=== PATIENT | male | born 1955 | race Caucasian/White ===

== ENCOUNTER → 2020-02-17 11:20 | Outpatient (BNVA) | payer BC, MEDICARE, SELFPAY | PROVIDERS: PCP Internal Medicine; Visit Provider Internal Medicine Pulmonary Disease | DX: Z76.89 Persons encountering health services in other specified circumstances (principal) ==

== ENCOUNTER 2020-03-31 15:42 | Outpatient (REF) | payer BC, MEDICARE, SELFPAY ==
--- NOTE | 2020-03-31 15:44 | CT_ITS ---
EXAMINATION: CT CHEST WITHOUT CONTRAST CLINICAL INFORMATION: Abnormal finding of the lungs COMPARISON: No recent prior comparison TECHNIQUE: Multidetector volumetric CT imaging of the chest was done. Axial MIP volume rendering provided. Sagittal and coronal reformatted images were obtained. This CT examination was performed using dose optimization techniques as appropriate, variously including the following: *Automated exposure control *Adjustment of mA and/or kV according to patient size (this includes techniques or standardized protocols for targeted exams where dose is matched to indication/reason for exam; i.e. 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 Well-expanded lungs. LUNGS: The central airways are patent. There is minimal groundglass opacity in the medial aspect of the right lower lobe along known osteophytes of the spine. This is a typical finding. There is no dense consolidation. Scattered thin-walled lung cysts are seen. No pneumothorax. Pulmonary nodules are noted. 1. Left lower lobe 0.5 cm nodule on series 7 image 395. 2. Left upper lobe 0.3 cm nodule on series 7 image 183. MEDIASTINUM: Normal heart size. Coronary artery calcifications are present. No pericardial effusion. No mediastinal lymphadenopathy. The thyroid gland is normal in size. Calcification in the left lobe noted. PLEURA: There is no pleural effusion. No pleural mass or thickening. AXILLA: No lymphadenopathy. UPPER ABDOMEN: There is a 1.6 cm cyst in the left lobe of the liver. No acute findings seen in the visualized upper abdomen. OSSEOUS STRUCTURES: No acute or suspicious osseous abnormality. Degenerative changes noted in the spine. Fusion hardware seen at C6-C7 and C7-T1. CT/CT chest wo con IMPRESSION: No acute finding in the lungs. Pulmonary nodules noted measuring up to 0.5 cm. No follow-up needed in a low risk patient. Consider 12 month follow-up chest CT in a high-risk patient.
== END 2020-03-31 15:43 | disposition home or self-care (01) ==
LOC: HO.CT 15:42
PROVIDERS: Visit Provider Internal Medicine Pulmonary Disease
DX: R91.8 Other nonspecific abnormal finding of lung field (principal)
CPT/HCPCS: 71250

== ENCOUNTER → 2020-06-02 11:04 | Outpatient (BNVA) | payer BC, MEDICARE, SELFPAY | PROVIDERS: PCP Internal Medicine; Visit Provider Internal Medicine Pulmonary Disease ==

== ENCOUNTER 2020-06-19 11:33 | Outpatient (REF) | payer BC, MEDICARE, SELFPAY ==
[2020-06-19 13:34] LABS: MANUAL DIFF FLAG NO
[2020-06-19 13:53] LABS: Basophils Absolute Auto 0.1 X10*3/uL (0.0-0.2); Basophils Percent Auto 0.8 % (0-2); Eosinophils Absolute Auto 0.3 X10*3/uL (0.0-0.4); Eosinophils Percent Auto 3.5 % (0-4); Hematocrit 42.8 % (42-52); Hemoglobin 13.9 g/dl (14.0-18.0); Imm Gran Abs Auto 0.29 X10*3/uL (0.00-0.03); Imm Gran Pct Auto 2.9 % (0.0-0.4); Lymphocytes Percent Auto 20.7 % (20-40); Mean Corpuscular HGB Conc 32.5 g/dl (31.0-36.0); Mean Corpuscular Hemoglobin 30.4 pg (27.0-33.0); Mean Corpuscular Volume 93.7 fL (80-98); Mean Platelet Volume 9.3 fL (9.4-12.4); Monocytes Percent Auto 9.8 % (2-11); Neutrophils Absolute Auto 6.1 X10*3/uL (2.0-8.3); Neutrophils Percent Auto 62.3 % (45-73); Platelet Count 275 X10*3/uL (160-400); Red Blood Count 4.57 X10*6/uL (4.60-5.80); Red Cell Distribution Width 12.9 % (11.0-16.0); White Blood Count 9.8 X10*3/uL (4.8-10.8)
== END 2020-06-19 11:34 | disposition home or self-care (01) ==
LOC: HO.LAB 11:33
PROVIDERS: PCP Internal Medicine; Visit Provider Internal Medicine Pulmonary Disease
DX: J44.9 Chronic obstructive pulmonary disease, unspecified (principal); R06.00 Dyspnea, unspecified; R91.8 Other nonspecific abnormal finding of lung field; Z87.891 Personal history of nicotine dependence; Z91.09 Other allergy status, other than to drugs and biological substances
CPT/HCPCS: 36415; 82785; 85025; 86003

== ENCOUNTER → 2020-08-04 14:22 | Outpatient (BNVA) | payer BC, MEDICARE, SELFPAY | PROVIDERS: PCP Internal Medicine; Visit Provider Internal Medicine Pulmonary Disease ==

== ENCOUNTER → 2020-08-21 13:28 | Outpatient (BNVA) | payer BC, MEDICARE, SELFPAY | PROVIDERS: PCP Internal Medicine; Visit Provider Internal Medicine Pulmonary Disease ==

== ENCOUNTER → 2020-09-16 15:03 | Outpatient (BNVA) | payer BC, MEDICARE, SELFPAY | PROVIDERS: PCP Internal Medicine; Visit Provider Internal Medicine Pulmonary Disease ==

== ENCOUNTER → 2020-12-09 14:52 | Outpatient (BNVA) | payer BC, MEDICARE, SELFPAY | PROVIDERS: PCP Internal Medicine; Visit Provider Internal Medicine Pulmonary Disease ==

== ENCOUNTER → 2021-08-19 20:19 | Outpatient (REF) | payer BC, MEDICARE, SELFPAY | LOC: HO.SL 20:19 | PROVIDERS: PCP Internal Medicine; Visit Provider Internal Medicine Pulmonary Disease | DX: G47.33 Obstructive sleep apnea (adult) (pediatric) (principal) | CPT/HCPCS: 95810 ==

== ENCOUNTER → 2021-09-02 11:38 | Outpatient (BNVA) | payer BC, MEDICARE, SELFPAY | PROVIDERS: PCP Internal Medicine; Visit Provider Internal Medicine Pulmonary Disease | DX: Z13.89 Encounter for screening for other disorder (principal) ==

== ENCOUNTER 2021-11-05 13:07 | Outpatient (REF) | payer BC, MEDICARE, SELFPAY ==
--- NOTE | ~2021-11-05 | CT_ITS ---
EXAMINATION: CT CHEST WITHOUT CONTRAST CLINICAL INFORMATION: Other nonspecific abnormal finding of lung field. COMPARISON: 03/31/2020 TECHNIQUE: Multidetector volumetric CT imaging of the chest was done. Axial MIP volume rendering provided. Sagittal and coronal reformatted images were obtained. This CT examination was performed using dose optimization techniques as appropriate, variously including the following: *Automated exposure control *Adjustment of mA and/or kV according to patient size (this includes techniques or standardized protocols for targeted exams where dose is matched to indication/reason for exam; i.e. extremities or head) *Use of iterative reconstruction technique DLP: 205 mGy-cm FINDINGS: ACTIVITIES MANAGER: Symmetrically expanded lungs. LUNGS: There are a few scattered calcified granulomata. These were present previously and unchanged. Similarly there are a few scattered nonspecific pulmonary micronodules, the largest a 4 mm left lower lobe nodule in image [id number] that was present previously as well. 2-3 mm left upper lobe nodule in image 157/629 is similarly unchanged. MEDIASTINUM: Thyroid is homogeneous. No hilar or mediastinal lymphadenopathy. Mild coronary artery calcification. Trace pericardial fluid. PLEURA: There is no pleural effusion. No pleural mass or thickening. AXILLA: No lymphadenopathy. UPPER ABDOMEN: 1.8 cm cyst in the left lobe of liver. No adrenal mass. OSSEOUS STRUCTURES: Partially imaged lower cervical fusion hardware. CT/CT chest wo con IMPRESSION: Unchanged small pulmonary nodules at most 4 mm in diameter. These are stable since 03/31/2020. No new or increasing pulmonary nodules. Per Fleischner guidelines, no further imaging follow-up recommended.
== END 2021-11-05 13:08 | disposition home or self-care (01) ==
LOC: HO.CT 13:07
PROVIDERS: Visit Provider Internal Medicine Pulmonary Disease
DX: R91.8 Other nonspecific abnormal finding of lung field (principal)
CPT/HCPCS: 71250

== ENCOUNTER 2021-12-08 13:03 | Outpatient (REF) | payer BC, MEDICARE, SELFPAY ==
--- NOTE | 2021-12-08 13:58 | PFT_ITS ---
FLOWS: FEV1 55% of predicted at 1.91 L. FVC 54% of predicted at 2.53 L. FEV1 to FVC ratio of 0.75. No bronchodilator response. LUNG VOLUMES: Total lung capacity 65% of predicted at 4.56 L. Residual volume 80% of predicted at 1.89 L. Slow vital capacity 57% of predicted at 2.67 L. Expiratory reserve volume 24% of predicted at 0.33 L. Diffusion capacity is mildly decreased, diffusion capacity corrects to normal after adjustment for alveolar ventilation. IMPRESSION: Moderate restrictive ventilatory defect with no bronchodilator response. Decreased expiratory reserve volume suggests extrathoracic restriction likely secondary to abdominal obesity. Franko Snell MD AP/MODL / [id number]
== END 2021-12-08 13:04 | disposition home or self-care (01) ==
LOC: HO.RESP 13:03
PROVIDERS: PCP Internal Medicine; Visit Provider Internal Medicine Pulmonary Disease
DX: J44.9 Chronic obstructive pulmonary disease, unspecified (principal)
CPT/HCPCS: 94060; 94727; 94729

== ENCOUNTER 2023-03-16 13:43 | Outpatient (AMB) | payer BC, MEDICARE, SELFPAY ==
--- NOTE | 2023-03-16 13:46 | MHC.OFFVIS ---
Intake Vital Signs 03/16/23 13:47 Height 5 ft 10 in Weight 218 lb 4.122 oz BMI 31.3 BP 114/64 Blood Pressure Location Lt brachial Position Sitting Pulse 104 H Pulse Source Pulse Oximeter Pulse Oximetry (%) 98 Oxygen Delivery Method Room Air Intake Visit Reasons: pulm nodule Concession Cashier Required: No Grooving Machine Operator: Grooving Machine Operator offered & declined Accompanied by: Self / Same As Patient Allergies No Known Allergies Allergy (Verified 03/16/23 13:50) Medication List - Last Reconciled 03/16/23 by Althea Quintana LPN albuterol sulfate 90 mcg/actuation (ProAir HFA) 1 puff inhalation QID carbamazepine ER 300 mg PO TID cetirizine 10 mg PO BID esomeprazole magnesium (Nexium) 20 mg PO DAILY eszopiclone (Lunesta) 2 mg PO BEDTIME irbesartan 300 mg PO DAILY methocarbamol 1,500 mg PO DAILY PRN methylphenidate HCl ER (Concerta) 54 mg PO DAILY promethazine mg PO rosuvastatin 20 mg PO DAILY tamsulosin (Flomax) 0.4 mg PO DAILY umeclidinium-vilanterol 62.5-25 mcg/actuation (Anoro Ellipta) 1 inh inhalation Q24H 90 days HPI pulm nodule HPI Details 68-year-old gentleman, former 30+ pack-year smoker, quit 2010 with underlying history of moderate COPD followed for underlying dyspnea, pulmonary nodules, LESLY, environmental allergies, and COPD.? He continues to use Anoro and albuterol MDI with suboptimal control of his underlying COPD symptoms.? He has been using Dupixent for eczema and environmental allergies with excellent control of his symptoms, however recently he had to discontinued secondary to financial reasons. Patient continues to use BiPAP to control his LESLY. Patient has intentional lost approximately [address] [facility] Social History (Updated 03/16/23 @ 13:53 by Althea Quintana LPN) Household Members: Spouse and Children Patient Tobacco Use Status: Former Tobacco user Years Smoked: 25 yrs Second Hand Smoke Exposure: No Review of Systems Const Denies daytime sleepiness, Denies excessive sweating, Denies fatigue, Denies fever(s), Denies lethargy, Denies malaise, Denies night sweats, Denies snoring and Denies weight loss Eyes Denies blurry vision and Denies itchy eyes ENT Denies nasal congestion, Denies post nasal drip, Denies sinus pain, Denies sinus pressure and Denies other ( Thrush) Card Denies chest pain, Denies pedal edema, Denies dyspnea, Reports dyspnea on exertion, Denies orthopnea and Denies paroxysmal nocturnal dyspnea Resp Denies cough, Denies hemoptysis, Denies excessive phlegm production, Denies dyspnea, Reports dyspnea on exertion, Denies snoring and Denies wheezing GI Denies abdominal pain and Denies heartburn Musc Denies myalgias, Denies arthralgias and Denies joint swelling Skin/Breast Denies rash Neuro Denies memory loss and Denies seizure-like activity Psych Denies abnormal sleep pattern, Denies anxiety and Denies memory loss Endo Denies excessive sweating, Denies fatigue and Denies heat intolerance Lico/Lymph Denies easy bruising Aller/Immun Denies itchy eyes, Denies seasonal rhinorrhea and Denies wheezing Physical Exam Vital Signs: Last Vital Signs Pulse 104 H 03/16/23 13:47 BP 114/64 03/16/23 13:47 Pulse Ox 98 03/16/23 13:47 Oxygen Delivery Method Room Air 03/16/23 13:47 BMI result Body Mass Index 31.3 Const General: no acute distress and alert Nutritional Appearance: not obese Orientation/consciousness: Other orientation findings ( oriented) HEENT Head: Yes atraumatic Eyes General: appearance normal, both eyes and all related structures Sclerae: sclerae normal EOM: EOMs intact bilaterally Neck Neck: Yes supple Lymphatic: no lymphadenopathy noted Resp Effort & Inspection: normal respiratory effort and no use of accessory muscles Auscultation: clear to auscultation bilaterally Cardio Rate: regular rate Rhythm: regular rhythm Heart sounds: no gallops, no murmurs and no rubs Skin General skin exam: other ( warm) Extrem General: No clubbing, No cyanosis and No edema Assessment & Plan Assessment & Plan (1) COPD (chronic obstructive pulmonary disease): Code(s): J44.9 - Chronic obstructive pulmonary disease, unspecified Plan: Suboptimal control on Anoro. Add theophylline and duo nebs. Continue albuterol MDI. (2) LESLY on CPAP: Code(s): G47.33 - Obstructive sleep apnea (adult) (pediatric); Z99.89 - Dependence on other enabling machines and devices Plan: Control on current on BiPAP therapy. (3) Environmental allergies: Code(s): Z91.09 - Other allergy status, other than to drugs and biological substances Plan: Patient cannot afford Dupixent. He continues to use Zyrtec. (4) Personal history of nicotine dependence: Code(s): Z87.891 - Personal history of nicotine dependence Plan: Will obtain CT lung screening. Orders: Orders CT lung screening 07/15/23 Z87.891 - Personal history of nicotine dependence Medications: New ipratropium-albuterol 0.5 mg-3 mg(2.5 mg base)/3 mL 3 mL inhalation Q4-6H PRN 180 mL 6RF wheezing 30 days theophylline ER 400 mg PO DAILY 30 tabs 6RF 30 days Coding Level of Care Code Est Pt Level 4 (11970) Diagnoses COPD (chronic obstructive pulmonary disease) J44.9 LESLY on CPAP G47.33; Z99.89 Environmental allergies Z91.09 Personal history of nicotine dependence Z87.891
[2023-03-16 13:47] VITALS: BP 114/64; PULSE 104; O2SAT 98; BMI 31.3
== END 2023-03-16 14:09 | disposition home or self-care (01) ==
PROVIDERS: PCP Internal Medicine; Visit Provider Internal Medicine Pulmonary Disease
DX: J44.9 Chronic obstructive pulmonary disease, unspecified (principal); G47.33 Obstructive sleep apnea (adult) (pediatric); Z99.89 Dependence on other enabling machines and devices; Z91.09 Other allergy status, other than to drugs and biological substances; Z87.891 Personal history of nicotine dependence
CPT/HCPCS: 99214

== ENCOUNTER → 2023-03-16 13:43 | Outpatient (BNVA) | payer BC, MEDICARE, SELFPAY | PROVIDERS: PCP Internal Medicine; Visit Provider Internal Medicine Pulmonary Disease ==

== ENCOUNTER 2023-07-25 13:54 | Outpatient (AMB) | payer BC, MEDICARE, SELFPAY ==
--- NOTE | 2023-07-25 13:59 | MHC.OFFVIS ---
Intake Vital Signs 07/25/23 14:01 Height 5 ft 10 in Weight 201 lb 11.567 oz BMI 28.9 BP 127/78 Blood Pressure Location Lt brachial Position Sitting Pulse 106 H Pulse Source Doppler Pulse Oximetry (%) 97 Oxygen Delivery Method Room Air Intake Visit Reasons: pulm nodule Allergies No Known Allergies Allergy (Verified 07/25/23 14:03) HPI pulm nodule HPI Details 68-year-old gentleman, former 30+ pack-year smoker, quit 2010 with underlying history of moderate COPD followed for underlying dyspnea, pulmonary nodules, LESLY, environmental allergies, and COPD.? He continues to use Anoro and albuterol MDI with suboptimal control of his underlying COPD symptoms.? He has been using Dupixent for eczema and environmental allergies with excellent control of his symptoms, however he had to discontinued secondary to financial reasons. Patient continues to use BiPAP to control his LESLY. Patient has intentional lost approximately 40 lb. He does complain of cough productive of greenish sputum. He is also getting an ENT evaluation secondary to feeling like there is food regurgitation. [facility] Social History Household Members: Spouse and Children Patient Tobacco Use Status: Former Tobacco user Years Smoked: 25 yrs Second Hand Smoke Exposure: No Review of Systems Const Denies daytime sleepiness, Denies excessive sweating, Denies fatigue, Denies fever(s), Denies lethargy, Denies malaise, Denies night sweats, Denies snoring and Denies weight loss Eyes Denies blurry vision and Denies itchy eyes ENT Denies nasal congestion, Denies post nasal drip, Denies sinus pain, Denies sinus pressure and Denies other ( Thrush) Card Denies chest pain, Denies pedal edema, Denies dyspnea, Denies orthopnea and Denies paroxysmal nocturnal dyspnea Resp Reports cough, Denies hemoptysis, Reports excessive phlegm production, Denies dyspnea, Denies snoring and Denies wheezing GI Denies abdominal pain and Denies heartburn Musc Denies myalgias, Denies arthralgias and Denies joint swelling Skin/Breast Denies rash Neuro Denies memory loss and Denies seizure-like activity Psych Denies abnormal sleep pattern, Denies anxiety and Denies memory loss Endo Denies excessive sweating, Denies fatigue and Denies heat intolerance Lico/Lymph Denies easy bruising Aller/Immun Denies itchy eyes, Denies seasonal rhinorrhea and Denies wheezing Physical Exam Vital Signs: Last Vital Signs Pulse 106 H 07/25/23 14:01 BP 127/78 07/25/23 14:01 Pulse Ox 97 07/25/23 14:01 Oxygen Delivery Method Room Air 07/25/23 14:01 BMI result Body Mass Index 28.9 Const General: no acute distress and alert Nutritional Appearance: not obese Orientation/consciousness: Other orientation findings ( oriented) HEENT Head: Yes atraumatic Eyes General: appearance normal, both eyes and all related structures Sclerae: sclerae normal EOM: EOMs intact bilaterally Neck Neck: Yes supple Lymphatic: no lymphadenopathy noted Resp Effort & Inspection: normal respiratory effort and no use of accessory muscles Auscultation: clear to auscultation bilaterally Cardio Rate: regular rate Rhythm: regular rhythm Heart sounds: no gallops, no murmurs and no rubs Skin General skin exam: other ( warm) Extrem General: No clubbing, No cyanosis and No edema Assessment & Plan Assessment & Plan (1) COPD exacerbation: Code(s): J44.1 - Chronic obstructive pulmonary disease with (acute) exacerbation Plan: Worsening control on Anoro, duo nebs, and albuterol MDI. Restart theophylline. Will treat bronchitic cough with a course of Levaquin. (2) LESLY on CPAP: Code(s): G47.33 - Obstructive sleep apnea (adult) (pediatric); Z99.89 - Dependence on other enabling machines and devices Plan: Well controlled on CPAP therapy. Continue current CPAP therapy. (3) Environmental allergies: Code(s): Z91.09 - Other allergy status, other than to drugs and biological substances Plan: Insurance no longer covering Dupixent. Continue Zyrtec. Medications: New levofloxacin 750 mg PO DAILY 7 tabs 0RF Coding Level of Care Code Est Pt Level 4 (02159) Diagnoses COPD exacerbation J44.1 LESLY on CPAP G47.33; Z99.89 Environmental allergies Z91.09
[2023-07-25 14:01] VITALS: BP 127/78; PULSE 106; O2SAT 97; BMI 28.9
== END 2023-07-25 14:15 | disposition home or self-care (01) ==
PROVIDERS: PCP Internal Medicine; Visit Provider Internal Medicine Pulmonary Disease
DX: J44.1 Chronic obstructive pulmonary disease with (acute) exacerbation (principal); G47.33 Obstructive sleep apnea (adult) (pediatric); Z99.89 Dependence on other enabling machines and devices; Z91.09 Other allergy status, other than to drugs and biological substances
CPT/HCPCS: 99214

== ENCOUNTER → 2023-07-25 13:54 | Outpatient (BNVA) | payer BC, MEDICARE, SELFPAY | PROVIDERS: PCP Internal Medicine; Visit Provider Internal Medicine Pulmonary Disease ==

== ENCOUNTER 2023-09-07 16:07 | Outpatient (REF) | payer BC, MEDICARE, SELFPAY ==
--- NOTE | ~2023-09-07 | CT_ITS ---
EXAMINATION: CT CHEST SCREENING CLINICAL INFORMATION: Personal history of nicotine dependence. The patient has a 30 pack-year history of smoking, having quit 14 years ago. COMPARISON: CT chest 11/05/2021. TECHNIQUE: Multidetector volumetric CT imaging of the chest is performed on a Siemens SOMATOM Definition scanner without contrast using low dose technique. Additional 2D coronal and sagittal reformatted images and axial 3D maximum intensity projection (MIP) images are generated on the CT workstation. This CT examination was performed using dose optimization techniques as appropriate, variously including the following: *Automated exposure control *Adjustment of mA and/or kV according to patient size (this includes techniques or standardized protocols for targeted exams where dose is matched to indication/reason for exam; i.e. extremities or head) *Use of iterative reconstruction technique DLP: 65 mGy-cm FINDINGS: LUNGS: Mild emphysematous changes are present along with mild bronchial thickening. Scattered pulmonary nodules are seen the largest measuring only 3 mm in the left upper lobe (5:150 compare prior 5:156). Sheriff images of all nodules have been saved. No new, increasing sized or worrisome pulmonary nodules are seen. MEDIASTINUM: The mediastinum is normal. CORONARY ARTERY CALCIFICATION: Minimal. PLEURA: There is no pleural effusion. No pleural mass or thickening. AXILLA: No lymphadenopathy. UPPER ABDOMEN: Left hemidiaphragm is mildly elevated. A left upper pole benign Bosniak class I water density cyst is present which needs no additional imaging or followup. OSSEOUS STRUCTURES: ACDF hardware noted in the lower cervical spine. Left shoulder prosthesis is present. No bony destructive lesion. CT/CT lung screening IMPRESSION: Benign-appearing change pulmonary nodules not concerning for malignancy. ASSESSMENT: Lung-RADS category 2: Benign. RECOMMENDATION: Routine annual low-dose CT screening in 12 months.
== END 2023-09-07 16:08 | disposition home or self-care (01) ==
LOC: HO.CT 16:07
PROVIDERS: PCP Internal Medicine; Visit Provider Internal Medicine Pulmonary Disease
DX: Z12.2 Encounter for screening for malignant neoplasm of respiratory organs (principal); Z87.891 Personal history of nicotine dependence
CPT/HCPCS: 71271

== ENCOUNTER 2023-12-05 13:24 | Outpatient (AMB) | payer BC, MEDICARE, SELFPAY ==
[2023-12-05 13:26] VITALS: BP 132/82; PULSE 85; O2SAT 98; BMI 29.0
--- NOTE | 2023-12-05 13:26 | A.OFFVIS_ITS ---
Vital Signs 12/05/23 13:26 Height 5 ft 10 in Weight 202 lb BMI 29.0 BP 132/82 Blood Pressure Location Lt brachial Position Sitting Pulse 85 Pulse Source Doppler Pulse Oximetry (%) 98 Oxygen Delivery Method Room Air Intake Visit Reasons: Pulm Nodule Allergies No Known Allergies Allergy (Verified 07/25/23 14:03) HPI HPI Pulm Nodule: Details: 68-year-old gentleman, former 30+ pack-year smoker, quit 2010 with underlying history of moderate COPD followed for underlying dyspnea, pulmonary nodules, LESLY, environmental allergies, and COPD.? He continues to use Anoro and albuterol MDI with suboptimal control of his underlying COPD symptoms.? He has been using Dupixent for eczema and environmental allergies with excellent control of his symptoms and his insurance is covering it again. Patient continues to use BiPAP to control his LESLY. Patient has intentional lost approximately 40 lb. He d enies any recent exacerbations. [facility] Social History Household Members: Spouse and Children Patient Tobacco Use Status: Former Tobacco user Years Smoked: 25 yrs Second Hand Smoke Exposure: No Review of Systems Const Denies daytime sleepiness, Denies excessive sweating, Denies fatigue, Denies fever(s), Denies lethargy, Denies malaise, Denies night sweats, Denies snoring and Denies weight loss Eyes Denies blurry vision and Denies itchy eyes ENT Denies nasal congestion, Denies post nasal drip, Denies sinus pain, Denies sinus pressure and Denies other ( Thrush) Card Denies chest pain, Denies pedal edema, Denies dyspnea, Denies orthopnea and Denies paroxysmal nocturnal dyspnea Resp Denies cough, Denies hemoptysis, Denies excessive phlegm production, Denies dyspnea, Denies snoring and Denies wheezing GI Denies abdominal pain and Denies heartburn Musc Denies myalgias, Denies arthralgias and Denies joint swelling Skin/Breast Denies rash Neuro Denies memory loss and Denies seizure-like activity Psych Denies abnormal sleep pattern, Denies anxiety and Denies memory loss Endo Denies excessive sweating, Denies fatigue and Denies heat intolerance Lico/Lymph Denies easy bruising Aller/Immun Denies itchy eyes, Denies seasonal rhinorrhea and Denies wheezing Physical Exam Vital Signs: Last Vital Signs Pulse 85 12/05/23 13:26 BP 132/82 12/05/23 13:26 Pulse Ox 98 12/05/23 13:26 Oxygen Delivery Method Room Air 12/05/23 13:26 BMI result Body Mass Index 29.0 Const General: no acute distress and alert Nutritional Appearance: not obese Orientation/consciousness: Other orientation findings ( oriented) HEENT Head: Yes atraumatic Eyes General: appearance normal, both eyes and all related structures Sclerae: sclerae normal EOM: EOMs intact bilaterally Neck Neck: Yes supple Lymphatic: no lymphadenopathy noted Resp Effort & Inspection: normal respiratory effort and no use of accessory muscles Auscultation: clear to auscultation bilaterally Cardio Rate: regular rate Rhythm: regular rhythm Heart sounds: no gallops, no murmurs and no rubs Skin General skin exam: other ( warm) Extrem General: No clubbing, No cyanosis and No edema Assessment & Plan Assessment & Plan (1) COPD (chronic obstructive pulmonary disease): Code(s): J44.9 - Chronic obstructive pulmonary disease, unspecified Category: Medical Plan: Well controlled on duo nebs, Anoro, theophylline, and albuterol MDI. Continue current regimen. (2) LESLY on CPAP: Code(s): G47.33 - Obstructive sleep apnea (adult) (pediatric); Z99.89 - Dependence on other enabling machines and devices Category: Medical Plan: Well controlled on BiPAP therapy. Continue BiPAP therapy. (3) Environmental allergies: Code(s): Z91.09 - Other allergy status, other than to drugs and biological substances Category: Medical Plan: Well controlled on Dupixent. Continue Dupixent. Coding Level of Care Code Est Pt Level 4 (97441) Diagnoses COPD (chronic obstructive pulmonary disease) J44.9 LESLY on CPAP G47.33; Z99.89 Environmental allergies Z91.09
== END 2023-12-05 13:46 | disposition home or self-care (01) ==
PROVIDERS: PCP Internal Medicine; Visit Provider Internal Medicine Pulmonary Disease
DX: J44.9 Chronic obstructive pulmonary disease, unspecified (principal); G47.33 Obstructive sleep apnea (adult) (pediatric); Z99.89 Dependence on other enabling machines and devices; Z91.09 Other allergy status, other than to drugs and biological substances
CPT/HCPCS: 99214

== ENCOUNTER → 2023-12-05 13:24 | Outpatient (BNVA) | payer BC, MEDICARE, SELFPAY | PROVIDERS: PCP Internal Medicine; Visit Provider Internal Medicine Pulmonary Disease ==

== ENCOUNTER 2024-04-02 12:56 | Outpatient (AMB) | payer BC, MEDICARE, SELFPAY ==
[2024-04-02 13:00] VITALS: BP 138/84; PULSE 101; O2SAT 100; BMI 29.6
--- NOTE | 2024-04-02 13:00 | MHC.OFFVIS ---
Vital Signs 04/02/24 13:00 Height 5 ft 10 in Weight 206 lb 2.115 oz BMI 29.6 BP 138/84 Blood Pressure Location Rt brachial Position Sitting Pulse 101 H Pulse Source Doppler Pulse Oximetry (%) 100 Oxygen Delivery Method Room Air Intake Visit Reasons: SOB, congested Allergies No Known Allergies Allergy (Verified 07/25/23 14:03) HPI HPI SOB, congested: Details: 69-year-old gentleman, former 30+ pack-year smoker, quit 2010 with underlying history of moderate COPD followed for underlying dyspnea, pulmonary nodules, LESLY, environmental allergies, and COPD.? He continues to use Anoro and albuterol MDI with suboptimal control of his underlying COPD symptoms.? He has been using Dupixent for eczema and environmental allergies with excellent control of his symptoms and his insurance continues to covered. Patient continues to use BiPAP to control his LESLY. Today he complains of an acute exacerbation symptomatic with cough and worsening dyspnea. REPLACED BY [facility] Social History Household Members: Spouse and Children Patient Tobacco Use Status: Former Tobacco user Years Smoked: 25 yrs Second Hand Smoke Exposure: No Review of Systems Const Denies daytime sleepiness, Denies excessive sweating, Denies fatigue, Denies fever(s), Denies lethargy, Denies malaise, Denies night sweats, Denies snoring and Denies weight loss Eyes Denies blurry vision and Denies itchy eyes ENT Denies nasal congestion, Denies post nasal drip, Denies sinus pain, Denies sinus pressure and Denies other ( Thrush) Card Denies chest pain, Denies pedal edema, Denies dyspnea, Denies orthopnea and Denies paroxysmal nocturnal dyspnea Resp Reports cough, Denies hemoptysis, Reports excessive phlegm production, Denies dyspnea, Denies snoring and Denies wheezing GI Denies abdominal pain and Denies heartburn Musc Denies myalgias, Denies arthralgias and Denies joint swelling Skin/Breast Denies rash Neuro Denies memory loss and Denies seizure-like activity Psych Denies abnormal sleep pattern, Denies anxiety and Denies memory loss Endo Denies excessive sweating, Denies fatigue and Denies heat intolerance Lico/Lymph Denies easy bruising Aller/Immun Denies itchy eyes, Denies seasonal rhinorrhea and Denies wheezing Physical Exam Vital Signs: Last Vital Signs Pulse 101 H 04/02/24 13:00 BP 138/84 04/02/24 13:00 Pulse Ox 100 04/02/24 13:00 Oxygen Delivery Method Room Air 04/02/24 13:00 BMI result Body Mass Index 29.6 Const General: no acute distress and alert Nutritional Appearance: not obese Orientation/consciousness: Other orientation findings ( oriented) HEENT Head: Yes atraumatic Eyes General: appearance normal, both eyes and all related structures Sclerae: sclerae normal EOM: EOMs intact bilaterally Neck Neck: Yes supple Lymphatic: no lymphadenopathy noted Resp Effort & Inspection: normal respiratory effort and no use of accessory muscles Auscultation: clear to auscultation bilaterally Cardio Rate: regular rate Rhythm: regular rhythm Heart sounds: no gallops, no murmurs and no rubs Skin General skin exam: other ( warm) Extrem General: No clubbing, No cyanosis and No edema Assessment & Plan Assessment & Plan (1) COPD (chronic obstructive pulmonary disease): Code(s): J44.9 - Chronic obstructive pulmonary disease, unspecified Category: Medical Plan: Baseline controlled on Anoro, duo nebs, and albuterol MDI. Patient has been encouraged to be more compliant with Anoro. Continue current regimen. Now with an acute exacerbation, will treat with a course of Levaquin and prednisone. (2) Environmental allergies: Code(s): Z91.09 - Other allergy status, other than to drugs and biological substances Category: Medical Plan: Improved control on Dupixent. Continue current regimen. (3) Personal history of nicotine dependence: Code(s): Z87.891 - Personal history of nicotine dependence Category: Medical Plan: Continue with yearly screening, next in August of 2024, ordered. Medications: New prednisone 40 mg (2 x 20 mg) PO DAILY 10 tabs 0RF Refilled levofloxacin 750 mg PO DAILY 14 tabs 0RF Coding Level of Care Code Est Pt Level 4 (40263) Complex EM visit Add On G2211 Diagnoses COPD (chronic obstructive pulmonary disease) J44.9 Environmental allergies Z91.09 Personal history of nicotine dependence Z87.891
== END 2024-04-02 13:32 | disposition home or self-care (01) ==
PROVIDERS: PCP Internal Medicine; Visit Provider Internal Medicine Pulmonary Disease
DX: J44.9 Chronic obstructive pulmonary disease, unspecified (principal); Z91.09 Other allergy status, other than to drugs and biological substances; Z87.891 Personal history of nicotine dependence
CPT/HCPCS: 99214

== ENCOUNTER → 2024-04-02 12:56 | Outpatient (BNVA) | payer BC, MEDICARE, SELFPAY | PROVIDERS: PCP Internal Medicine; Visit Provider Internal Medicine Pulmonary Disease ==

== ENCOUNTER 2024-07-03 14:44 | Outpatient (AMB) | payer BC, MEDICARE, SELFPAY ==
[2024-07-03 14:47] VITALS: BP 137/78; PULSE 143; O2SAT 100; BMI 29.0
--- NOTE | 2024-07-03 14:47 | A.OFFVIS_ITS ---
Vital Signs 07/03/24 14:47 Height 5 ft 10 in Weight 202 lb BMI 29.0 BP 137/78 Blood Pressure Location Lt brachial Position Sitting Pulse 143 H Pulse Source Doppler Pulse Oximetry (%) 100 Oxygen Delivery Method Room Air Intake Visit Reasons: pulm nodule Allergies No Known Allergies Allergy (Verified 07/03/24 14:54) HPI HPI pulm nodule: Details: 69-year-old gentleman, former 30+ pack-year smoker, quit 2010 with underlying history of moderate COPD followed for underlying dyspnea, pulmonary nodules, LESLY, environmental allergies, and COPD.? He continues to use Anoro and albuterol MDI with reasonable control of his underlying COPD symptoms.? He has been using Dupixent for eczema and environmental allergies with excellent control of his symptoms. Patient continues to use BiPAP to control his LESLY. He denies any recent exacerbations. [facility] Medical History (Updated 07/02/24 @ 12:11 by Tabby Gonzalez PA-C) LESLY on CPAP Environmental allergies COPD (chronic obstructive pulmonary disease) Pulmonary nodules Personal history of nicotine dependence Surgical History (Updated 07/02/24 @ 12:12 by Tabby Gonzalez PA-C) History of nasal surgery Social History Household Members: Spouse and Children Patient Tobacco Use Status: Former Tobacco user Years Smoked: 25 yrs Second Hand Smoke Exposure: No Review of Systems Const Denies daytime sleepiness, Denies excessive sweating, Denies fatigue, Denies fever(s), Denies lethargy, Denies malaise, Denies night sweats, Denies snoring and Denies weight loss Eyes Denies blurry vision and Denies itchy eyes ENT Denies nasal congestion, Denies post nasal drip, Denies sinus pain, Denies sinus pressure and Denies other ( Thrush) Card Denies chest pain, Denies pedal edema, Denies dyspnea, Denies orthopnea and Denies paroxysmal nocturnal dyspnea Resp Denies cough, Denies hemoptysis, Denies excessive phlegm production, Denies dyspnea, Denies snoring and Denies wheezing GI Denies abdominal pain and Denies heartburn Musc Denies myalgias, Denies arthralgias and Denies joint swelling Skin/Breast Denies rash Neuro Denies memory loss and Denies seizure-like activity Psych Denies abnormal sleep pattern, Denies anxiety and Denies memory loss Endo Denies excessive sweating, Denies fatigue and Denies heat intolerance Lico/Lymph Denies easy bruising Aller/Immun Denies itchy eyes, Denies seasonal rhinorrhea and Denies wheezing Physical Exam Vital Signs: Last Vital Signs Pulse 143 H 07/03/24 14:47 BP 137/78 07/03/24 14:47 Pulse Ox 100 07/03/24 14:47 Oxygen Delivery Method Room Air 07/03/24 14:47 BMI result Body Mass Index 29.0 Const General: no acute distress and alert Nutritional Appearance: not obese Orientation/consciousness: Other orientation findings ( oriented) HEENT Head: Yes atraumatic Eyes General: appearance normal, both eyes and all related structures Sclerae: sclerae normal EOM: EOMs intact bilaterally Neck Neck: Yes supple Lymphatic: no lymphadenopathy noted Resp Effort & Inspection: normal respiratory effort and no use of accessory muscles Auscultation: clear to auscultation bilaterally Cardio Rate: regular rate Rhythm: regular rhythm Heart sounds: no gallops, no murmurs and no rubs Skin General skin exam: other ( warm) Extrem General: No clubbing, No cyanosis and No edema Assessment & Plan Assessment & Plan (1) COPD (chronic obstructive pulmonary disease): Code(s): J44.9 - Chronic obstructive pulmonary disease, unspecified Category: Medical Plan: Well controlled on Anoro, duo nebs, and albuterol MDI. Continue current regimen. (2) Personal history of nicotine dependence: Comment: (30+PYH - quit 2010) Code(s): Z87.891 - Personal history of nicotine dependence Category: Medical Plan: Lung cancer screening CT chest is pending. (3) LESLY on CPAP: Code(s): G47.33 - Obstructive sleep apnea (adult) (pediatric); Z99.89 - Dependence on other enabling machines and devices Category: Medical Plan: Well controlled on current NIPPV therapy. Continue current therapy. (4) Environmental allergies: Code(s): Z91.09 - Other allergy status, other than to drugs and biological substances Category: Medical Plan: Well controlled on Dupixent. Continue current regimen. Orders: Orders PFT pulmonary function test Today J44.9 - Chronic obstructive pulmonary disease, unspecified Coding Level of Care Code Est Pt Level 4 (15727) Diagnoses COPD (chronic obstructive pulmonary disease) J44.9 Personal history of nicotine dependence Z87.891 LESLY on CPAP G47.33; Z99.89 Environmental allergies Z91.09
--- OUTSIDE RECORDS SUMMARY | 2024-07-03 14:47 | XMS_ITS | Data Portability ---
Author Organization [place] - [facility], [facility] [place] Address [address] [place] [address] Care Team Providers Care Dobby Loom Weaver Name Role Phone HENDERSON TERRANCE Primary Care Provider [phone] Assessment No assessment recorded. Plan of Treatment Reminders Order Date Submit Date Provider Last Modified By Organization Details Last Modified Time Details Appointments None recorded. Lab None recorded. Referral physical therapist referral - SURGERY: S/p Left anatomic TSA 4; Right GHOA; general upper body deconditi oning2-3x /week x 6 weeksEval uate and TreatGoal : - Decrease pain/swel ling - Increase range of motion - Increase strength and/or endurance Recommend ed Modalitie s: - Heat prior to stretchin g- Ice at the end of the session- Additiona l modalitie s prn, but emphasis should be on manual therapyPr ecautions : WBAT, no motion restricti onsTherap eutic Exercise: - Passive, active-as sist, active range of motion as tolerated , focusing on gradual progressi on over time- Scapula r shrugs/re tractions - should be major focus!- Submaxima l isometric rotator cuff strengthe tanya- Build to theraband and weight resistanc e (max 3lbs) as able- General upper body strength and condition ingEmphas ize importanc e of home program, 2x/day 2023 024 [email or web address] Not available 4 13:30:26 Procedures None recorded. Surgeries None recorded. Imaging XR, shoulder, 2 or more view - L shoulder a TSR 2 view rm 214 2023 024 [email or web address] [facility], [address], [address], [place], [address], 4 13:30:26 XR, shoulder, 2 or more view - L shoulder aTSR 3 gary view rm 216 2023 024 [email or web address] [facility], [address], [address], [place], [address], 4 10:49:35 Medication Orders None recorded. Patient TargetsNo targets recorded. Patient InstructionsNo instructions recorded. Reason for Referral Physical Therapist Referral for History of operative procedure on shoulder SURGERY: S/p Left anatomic TSA 05/19/2023; Right GHOA; general upper body deconditioning2-3x/week x 6 weeksEvaluate and TreatGoal: - Decrease pain/swelling - Increase range of motion - Increase strength and/or enduranceRecommended Modalities: - Heat prior to stretching- Ice at the end of the session- Additional modalities prn, but emphasis should be on manual therapyPrecautions: WBAT, no motion restrictionsTherapeutic Exercise: - Passive, active-assist, active range of motion as tolerated, focusing on gradual progression over time- Scapular shrugs/retractions - should be major focus!- Submaximal isometric rotator cuff strengthening- Build to theraband and weight resistance (max 3lbs) as able- General upper body strength and conditioningEmphasize importance of home program, 2x/day Referring Physician: Jenifer Bear, Orthopedic Surgery, [id number] Encounter Date: 02/08/2024 Results Created Date Observation Date Name Description Value Unit Range Abnormal Flag Note LastModifiedBy Organization Detail LastModifiedTime 01/12/20 24 01/25/2023 imagi ng/di agnos tic resul t No observ ation record ed. [email or web address] Not Available 12/15 02:58:58 01/12/20 24 01/25/2023 imagi ng/di agnos tic resul t No observ ation record ed. [email or web address] Not Available 12/15 02:58:59 01/12/20 24 05/19/2023 imagi ng/di agnos tic resul t No observ ation record ed. [email or web address] Not Available 12/15 02:59:09 02/08/2002/08/2024 XR, shoul julieta, 2 or more view http:/ [email or web address] ?Encry pted=s hAaTro YD8dLq bEUv6g %2BXZw aYqtaq 0bqfl% 2Fg9IQ a4ajBk vP9nXo QUaueC m3YtLR FvZlgJ JJ8mAn HZtai3 8r9235 AC0Kqa niDUKG jKiQtr MwF INTERFACE [facility] [address], [place], [address], 02/08/2024 14:25:50 02/08/20 24 02/08/2024 XR, shoul julieta, 2 or more view [email or web address] ?Encry pted=s hAaTro YD8dLq bEUv6g %2BXZw aYqtaq 0bqfl% 2Fg9IQ a4ajBk vP9nXo QUaueC m3YtLR FvZlg JJ8Denton HZtai3 5r9931 AC0Kqa niDUKG jKiQtr MwF INTERFACE [facility] [address], [place], [address], 02/08/2024 14:25:52 Result Notes None recorded. Problems Name Problem SNOMED Code Status Onset Date Resolution Date Notes Provider Name and Address Organization Details Recorded Time No complaints [id number] Active Status : 'I'; Not Available [facility] 09:14:14 Problem Notes None recorded. Procedures Surgical History Date Name Laterality Status Provider Name and Address Organization Details Recorded Time 5 Sports Shoulder 4&1 w/US completed Richard Donovan PA-C [address], [place], [address], [place] [facility] 06/18/2024 09:16:39 4 Sports Shoulder completed Jenifer Bear MD [address], [place], [address], [place] [facility] 02/08/2024 14:45:05 4 total shoulder replacement completed HU SZYMANSKI [facility] 08/10/2023 16:06:58 Imaging Results Imaging Date Name Status LastModified by Organiz ation Details LastModified Time 01/25/2023 imaging/diag nostic result completed Information not available 01/12/2024 02:58:58 01/25/2023 imaging/diag nostic result completed Information not available 01/12/2024 02:58:59 05/19/2023 imaging/diag nostic result completed Information not available 01/12/2024 02:59:09 02/08/2024 XR, shoulder, 2 or more view completed INTERFACE [employer] [facility] [address], [place], [address], 02/08/2024 14:25:50 02/08/2024 XR, shoulder, 2 or more view completed INTERFACE [employer] [facility] [facility] [address], [place], [address], 02/08/2024 14:25:52 Procedure Notes None recorded. Medical Equipment None Reported. Allergies Allergen ID Allergen Name Allergen Category Reaction Reaction Severity Criticality Documentation Date Start Date Code Code System Note Provider Name and Address Organization Details Recorded Time 08252 erythromy lory medicatio n Not available Not available Not available 07/17/20232011 4053 RxNorm Not Available [facility] 14:15:30 Medications Name Sig Start Date Stop Date Status Note LastModified by Organization Details LastModified Time celecoxib 200 mg capsule TAKE 1 CAPSULE BY MOUTH EVERY DAY active Not Available Not Available No t Available atorvastati n 40 mg tablet TAKE 1 TABLET BY MOUTH EVERY DAY FOR 90 DAYS active Not Available Not Available No t Available methocarbam ol 500 mg tablet TAKE 1 TABLET BY MOUTH THREE TIMES A DAY active Not Available Not Available No t Available buspirone 5 mg tablet TAKE 1 TABLET BY MOUTH DAILY NEEDED X90 DAYS active Not Available Not Available No t Available prednisone 10 mg tablet PLEASE SEE ATTACHED FOR DETAILED DIRECTION S active Not Available Not Available No t Available ipratropium 0.5 mg-albutero l 3 mg (2.5 mg base)/3 mL nebulizatio n soln 09/13 completed Not Available Not Available Not Available azithromyci n 250 mg tablet THERAPY PACK ORALLY 2 TABS DAY 1, THEN 1 TAB DAILY X 4 DAYS 5 DAYS 09/13 completed Not Available Not Available Not Available theophyllin e ER 400 mg tablet,exte nded release 24 hr TAKE 1 TABLET BY MOUTH EVERY DAY active Not Available Not Available No t Available valacyclovi r 1 gram tablet TAKE 2 TABLETS AT FIRST SIGN OF COLD SORE, THEN 2 TABLETS 12 HOURS LATER. active Not Available Not Available No t Available sumatriptan 100 mg tablet TAKE 1 TABLET BY MOUTH EVERY DAY NEEDED active Not Available Not Available No t Available prochlorper azine maleate 5 mg tablet TAKE 1 TABLET BY MOUTH ONCE DAILY NEEDED X30 DAYS active Not Available Not Available No t Available promethazin e 12.5 mg tablet TAKE 1/2 TABLET AT BEDTIME NEEDED. MAY CAUSE SIGNIFICA NT SEDATION. active Not Available Not Available No t Available carbamazepi ne ER 100 mg tablet,exte nded release,12 hr TAKE 3 TABLETS BY MOUTH TWICE A DAY active Not Available Not Available No t Available prednisone 20 mg tablet TAKE 2 TABLETS BY MOUTH DAILY active Not Available Not Available No t Available methylpheni date ER 54 mg tablet,exte nded release 24 hr TAKE 1 TABLET BY MOUTH EVERY DAY IN THE MORNING FOR 30 DAYS active Not Available Not Available No t Available prochlorper azine maleate 10 mg tablet TAKE 1 TABLET BY MOUTH EVERY DAY NEEDED FOR 30 DAYS active Not Available Not Available No t Available sulfamethox azole 800 mg-trimetho prim 160 mg tablet TAKE 1 TABLET BY MOUTH TWICE A DAY FOR 7 DAYS active Not Available Not Available No t Available sildenafil 100 mg tablet TAKE 1 TABLET DAILY NEEDED active Not Available Not Available No t Available Augmentin 125 mg-31.25 mg/5 mL oral suspension Take 20 mL every 8 hours by oral route. active Not Available Not Available No t Available terbinafine HCl 250 mg tablet TAKE 1 TABLET BY MOUTH EVERY DAY active Not Available Not Available No t Available propranolol 40 mg tablet TAKE 1 TABLET BY MOUTH EVERY DAY FOR 90 DAYS active Not Available Not Available No t Available amoxicillin 875 mg tablet TAKE 1 TABLET BY MOUTH TWICE A DAY FOR 14 DAYS 09/13 completed Not Available Not Available Not Available promethazin e 12.5 mg rectal suppository Insert by rectal route. active Not Available Not Available No t Available tamsulosin 0.4 mg capsule TAKE 1 CAPSULE BY MOUTH EVERY DAY FOR 90 DAYS active Not Available Not Available No t Available amlodipine 10 mg tablet Take 1 tablet every day by oral route. active Not Available Not Available No t Available benzonatate 100 mg capsule TAKE 1 CAPSULE BY MOUTH THREE TIMES A DAY NEEDED FOR 7 DAYS 09/13 completed Not Available Not Available Not Available cephalexin 500 mg capsule TAKE 1 CAPSULE BY MOUTH FOUR TIMES A DAY FOR 7 DAYS active Not Available Not Available No t Available pseudoephed rine-guaife nesin ER 80-700 mg tablet,exte nded release 1-2 PO EVERY 4-6 HOURS PRN PAIN 08/09 completed Statu s: 'Curr ent'; Not Available Not Available Not Available lidocaine 5 % topical patch APPLY 1 PATCH EXTERNALL Y DAILY REMOVE AFTER 12 HOURS active Not Available Not Available No t Available hydrocortis one 2.5 % topical cream APPLY TWICE A DAY NEEDED TO RASH BETWEEN EYES & AROUND NOSE MAY THIN SKIN USE ONLY FOR FLARE-UPS active Not Available Not Available No t Available mupirocin 2 % topical ointment APPLY TO OPEN SKIN ONCE DAILY active Not Available Not Available No t Available levofloxaci n 750 mg tablet TAKE 1 TABLET BY MOUTH DAILY active Not Available Not Available No t Available testosteron e 1 % (25 mg/2.5 gram) transdermal gel packet Apply 2 packets every day by transderm al route. 02/07 completed Not Available Not Available Not Available ipratropium bromide 42 mcg (0.06 %) nasal spray SPRAY 2 SPRAYS INTO EACH NOSTRIL 3 TIMES A DAY FOR 7 DAYS 09/13 completed Not Available Not Available Not Available celecoxib 100 mg capsule TAKE 1 CAPSULE BY MOUTH TWICE A DAY NEEDED X 90 DAYS 02/07 completed Not Available Not Available Not Available irbesartan 300 mg tablet TAKE 1 TABLET BY MOUTH EVERY DAY FOR 90 DAYS active Not Available Not Available No t Available diazepam 5 mg tablet DIRECTED TAKE 1 TABLET 60 MINUTES PRIOR TO MRI APPOINTME NT. 09/13 completed Not Available Not Available Not Available amoxicillin 875 mg-potassiu m clavulanate 125 mg tablet TAKE 1 TABLET EVERY 12 HOURS FOR 10 DAYS active Not Available Not Available No t Available testosteron e 1 % (50 mg/5 gram) transdermal gel packet APPLY 1 PACKET TO SKIN DAILY active Not Available Not Available No t Available tobramycin 0.3 %-dexametha sone 0.1 % eye drops,suspe nsion INSTILL 1 DROP IN EACH AFFECTED EYE ONCE OR TWICE PER DAY NEEDED. LIMIT USE TO 5 TIMES PER MONTH active Not Available Not Available No t Available oxycodone 5 mg tablet TAKE 1 TABLET UP TO THREE TIMES A DAY NEEDED FOR SEVERE PAIN active Not Available Not Available No t Available duloxetine 30 mg capsule,del ayed release TAKE 1 CAPSULE BY MOUTH EVERY DAY FOR 30 DAYS active Not Available Not Available No t Available duloxetine 60 mg capsule,del ayed release TAKE 1 CAPSULE ONCE DAILY active Not Available Not Available No t Available selenium sulfide 2.25 % shampoo USE SHAMPOO DAILY NEEDED. LEAVE ON FOR 5 MINUTES AND RINSE. active Not Available Not Available No t Available eszopiclone 2 mg tablet TAKE 1 TABLET BY MOUTH EVERY DAY AT BEDTIME NEEDED FOR 15 DAYS ORALLY ONCE A DAY 15 DAYS active Not Available Not Available No t Available Concerta Concerta 27MG Tablet Extended Release 2021 active Statu s: 'Curr ent'; Not Available Not Available Not Available testosteron e 50 mg/5 gram (1 %) transdermal gel APPLY 1 PACKETS TO SKIN DAILY 09/13 completed Not Available Not Available Not Available oxycodone HCl-oxycodo ne-ASA 1 tab po four times a day prn pain 08/09 completed Statu s: 'Curr ent'; Not Available Not Available Not Available Connor Kaminski [facility] spacer DIRECTED 09/13 completed Not Available Not Available Not Available Anoro Ellipta 62.5 mcg-25 mcg/actuati on powder for inhalation INHALE 1 PUFF EVERY 24 HOURS FOR 90 DAYS active Not Available Not Available No t Available Anoro Ellipta 09/13 completed Not Available Not Available Not Available Dupixent 300 mg/2 mL subcutaneou s syringe active Not Available Not Available No t Available Proair Digihaler active Not Available Not Available No t Available Wegovy 2.4 mg/0.75 mL subcutaneou s pen injector INJECT 0.75 SUBCUTANE OUSLY EVERY WEEK FOR 30 DAYS active Not Available Not Available No t Available Wegovy 1.7 mg/0.75 mL subcutaneou s pen injector INJECT ONCE A WEEK active Not Available Not Available No t Available Wegovy 0.25 mg/0.5 mL subcutaneou s pen injector 09/13 completed Not Available Not Available Not Available Vitals Date Recorded Body height Body mass index (BMI) Body weight Provider Name and Address Organization Details Last Updated DateTime 09/14/2023 175.26 cm 32.9 kg/m2 917599.1 g HU SZYMANSKI [facility] 09/14/2023 13:46:09 Date Recorded Body height Body mass index (BMI) Body weight Provider Name and Address Organization Details Last Updated DateTime 02/08/2024 175.26 cm 32.9 kg/m2 508863.1 g HU SZYMANSKI [facility] 02/08/2024 14:18:43 Date Recorded Body height Body mass index (BMI) Body weight Provider Name and Address Organization Details Last Updated DateTime 06/18/2024 175.26 cm 32.9 kg/m2 623183.1 g Carolyn Yolanda [facility] 06/18/2024 08:58:26 Social History None recorded. Functional Status None recorded. Mental Status None recorded. Family History Nothing Reported. Medical History Condition Response Anxiety/Depression Y Arthritis Y Sleep Apnea Y Hepatitis Y Headaches Y Hypertension Y Past Encounters Encounter ID Performer Location Encounter Start Date Encounter Closed Date Diagnosis/Indication Diagnosis SNOMED-CT Code Diagnosis ICD10 Code Diagnosis Note [id number] MD [facility] [address] [place] [address] 09/14/2023 13:26:47 09/27/2023 10:49:35 History of total arthroplasty of left shoulder 1428474439 [id number] Z96.959 [id number] MD [facility] [address] [place] [address] 02/08/2024 14:14:23 02/29/2024 13:30:26 History of operative procedure on shoulder 965250672 Z98.910 [id number] [facility] [address] [place] [address] 06/18/2024 08:41:39 06/26/2024 08:12:51 Osteoarthritis of right glenohumeral joint 6281745704 707104 M19.011 Health Concerns Section Related Observation LastModified by Organization Detai ls LastModified Time None Recorded Concern Status LastModified by Organization Details LastModified Time None Recorded Advance Directives Directive None Recorded Payers Encounter Date Sequence Insurance Name Policy Number Policy Kathleen Covered Member ID Kathleen Member ID Guarantor Name 09/14/2023 2 [place] [facility] Dalton Porras [id number] Dlaton Porras 09/14/2023 1 [place] [facility] [id number] Preeti Porras [id number] Dalton Porras 02/08/2024 2 [place] [facility] Dalton Porras [id number] Dalton Porars 02/08/2024 1 [place] [facility] [id number] Preeti Porras [id number] Dalton Porras 06/18/2024 2 [place] [facility] Dalton Porras [id number] 31 Dalton Porras 06/18/2024 1 [place] [facility] [id number] Preeti Porras [id number] Dalton Porras Notes Date Note Type Note Provider Name and Address Organization Details Recorded Time 09/14/2023 text/html Surgery: Left anatomic total shoulder arthroplasty, 05/19/2023 Interval History: The patient returns today in follow-up now approximately 4 months out from surgery as above. Doing fairly well. Continues with physical therapy, currently working on active range of motion, with plans to advance to strengthening in the next few weeks. Making good progress with motion. Pain levels continue to improve. No issues with incisions. No numbness or tingling in arm or hand. We have not yet let the patient return to work. Past family, medical, social history and review of systems have been reviewed and updated on the medical history sheet saved to the patient's chart. A 12-point review of systems is negative x12 except as noted above and/or on the medical history sheet. Examination: Pleasant 68-year-old gentleman in no acute distress. On exam of the left upper extremity, deltopectoral incision is nicely healed. No significant swelling or bruising. No evidence for Suraj deformity. Active forward elevation 175, passive 175; passive ER 75; IR L4. Rotator cuff strength grossly intact, 4/5, with submaximal isometric strength testing, with mild pain with resisted IR and empty can. Sensation intact in axillary and LABC distributions. Fires EPL, FPL and intrinsics. Hand is warm and well perfused. Imagin views of the left shoulder ordered and obtained at [facility] today were reviewed during the visit. These demonstrate an anatomic total shoulder arthroplasty in good alignment. Components appear to fit the patient's anatomy appropriately. No proximal migration of the humeral head. Humeral head sits slightly anterior relative to the center of the glenoid. No evidence for fracture. Impression: 68-year-old gentleman, now approximately 4 months out from surgery as above. Doing fairly well thus far. Plan: We will have the patient resume PT to get some work on strengthening in. Will have him continue working on endrange stretching, transitioning to strengthening with isometrics at 12 weeks gradually progressing into more advanced strengthening between 12 and 16 weeks. Reminded the patient that the subscapularis is still early in the healing phase following surgery and that it will take another 3 months for the repair to reach 85% strength of the normal tendon. As such, we need to continue to progress slowly and be cautious with the use of the arm. Within the next few weeks, would anticipate transition to isometric and then more advanced rotator cuff strengthening exercises as per the previously provided protocol. Encouraged the patient to use the instructions/restri ctions/precautions provided in PT as a guide to what they can/should not do on their own at home. Anticipate residual discomfort will continue to improve as motion and mechanics improve and as the repair continues to heal and mature. Will plan to see the patient back in another 3 months for next recheck, with new x-rays at that time [facility] speech recognition passenger barge master software was used to create portions of this document. An attempt at proofreading has been made to minimize errors. Please call for corrections. Jenifer Bear MD [address], [place], [address], [facility] 09/14/2023 14:10:57 02/08/2024 text/html Issues:- S/p Lef t anatomic total shoulder arthroplasty, 05/19/2023- right glenohumeral arthritis Interval History: The patient returns today in follow-up now 8.5 months out from surgery as above. Doing well. Has completed PT (admits that he never completed the strengthening phase). Has been gradually increasing activities on his own at home. Happy with range of motion but feels that he is still weak. Denies anything more than intermittent aches and pains in the shoulder. No issues with incision. No numbness or tingling in the arm or hand. Past family, medical, social history and review of systems have been reviewed and updated on the medical history sheet saved to the patient's chart. A 12-point review of systems is negative x12 except as noted above and/or on the medical history sheet. Examination: Pleasant 69-year-old gentleman in no acute distress. On exam of the Left upper extremity, incision is nicely healed. Able to maintain the shoulder abducted against gravity without difficulty. Active forward elevation 165, passive 170 with good mechanics. Passive ER 75 with negative ER lag. IR to L5. 5-/5 scaption, 5/5 ER, 5/5 IR. Sensation intact in an axillary distribution. Fires EPL, FPL and intrinsics. Hand is warm and well perfused. Imaginv of the Left shoulder ordered and obtained at [facility] today were reviewed during the visit. These demonstrate uncemented anatomic total shoulder arthroplasty in place. 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 Impression: 69-year-old gentleman, now 8.5 months out from surgery as above. Doing well. X-ray suggests subscapularis insufficiency, but seems to be asymptomatic. Also with continued complaints regarding right shoulder, where he has no glenohumeral arthritis. Plan: With regard to the right shoulder, we will go forward with injection today to help with managing symptoms. Not ready to consider surgical intervention on the side. With regard to the left shoulder, I have encouraged the patient to continue with a slow and steady progression of strengthening activities, working up to higher reps before increasing the amount of weight or resistance. With day-to-day activities, may gradually increase what he is doing. Discussed the importance of listening to his body, stopping if there is pain. Also discussed the importance of good mechanics, including keeping weight close to the body, avoiding lifting an awkward positions with weight away from the body, and using slow controlled movements always. For occasional aches and pains, she can take [id number] medication such as Tylenol or anti-inflammatories as needed; risks and benefits of medication discussed. Should call with more persistent pain. We will leave follow up open ended at this point. However should symptoms worsen or fail to improve to the patient's satisfaction, he is encouraged to give the office a call to be seen back for further evaluation and management. [employer] speech recognition passenger barge master software was used to create portions of this document. An attempt at proofreading has been made to minimize errors. Please call for corrections. Jenifer Bear MD [address] [place] [address], [place], [address], [facility] 02/08/2024 14:50:39 06/18/2024 text/html I am seeing the patient today under the supervision of Dr. Pate who was available but who did not see the patient. REASON FOR VISIT Patient comes to the office with known glenohumeral joint arthritis of the {{left Right* Bilat eral}} shoulder. The patient has done well with conservative management for their shoulder pain. Recently reports increasing discomfort over the past several weeks without injury. Pain is generalized about the shoulder and discomfort is noted at night. PAST MEDICAL/SURGICAL HISTORY Current medications per intake sheet. PHYSICAL FINDINGS The patient is well appearing, in no apparent distress, alert and oriented to person, place and time. Gait is symmetric. No significant swelling, warmth or erythema about either shoulder. There is mild tenderness to palpation about the shoulder. Active range of motion of the shoulder is {{full restricted*} } with moderate pain through mid range manipulations. 4/5 strength of the shoulder. Good stability of the shoulder. Peripheral, vascular, lymphatic examination, skin, neurologic coordination, reflexes, sensation are within normal limits. ASSESSMENT right glenohumeral joint arthritis PLAN The patient has done well with conservative management in regards to the shoulder. Continued conservative management recommended. Moderating activities with the upper extremity recommended also. See procedure note. Follow up as needed. Richard Donovan PA-C [address] [facility] [address], [place], [address], [facility] - [facility] 06/18/2024 09:17:12
--- OUTSIDE RECORDS SUMMARY | 2024-07-03 14:47 | XMS_ITS | Clinical Summary ---
Author Organization [facility] Address [address] [place] [address] Phone Care Team Providers Care Licensed Investment Sales Assistant Name Role Phone Deandre Mi MD Primary Care Provider + [phone] Allergies Active Allergy Reactions Criticality Noted Date Comments Erythromycin Nausea And Vomiting 06/27/2005 Gave him c dif; patient has taken z pack with no problem Medications mecobalamin (B12 ACTIVE ORAL) 1 tab po qd Active syringe, disposable, 3 mL syringe USE 1 SYRINGE INTRAMUSCULARLY EVERY TWO WEEKS DIRECTED 02/16/20 19 Active syringe, disposable, 3 mL syringe USE DIRECTED 01/01/20 15 Active CHOLECALCIFERO L, VITAMIN D3, ORAL 800 or 1000 units Ac tive UNABLE TO FIND CPAP HISTORICAL (HISTORICAL CPAP) Active KRILL OIL ORAL Take by mouth. Active multivit-min/f errous fumarate (MULTI VITAMIN ORAL) 1 tab po qd 07/03/19 08 Active inhalational spacing device inhaler 1 Device by Does not apply route as needed (w inhalers). Use w flovent and ProAir 05/23/19 14 Active albuterol 2.5 mg /3 mL (0.083 %) nebulizer solution Take 1 Vial by nebulization every 4 hours as needed for Wheezing. 05/23/19 15 Active albuterol HFA (ProAir HFA) 90 mcg/actuation inhaler INHALE 2 PUFFS 4 TIMES A DAY 05/25/19 14 Active amLODIPine (NORVASC) 5 mg tablet 02/22/20 19 Active busPIRone (BUSPAR) 5 mg tablet TAKE 1 TABLET BY MOUTH THREE TIMES A DAY 09/27/19 23 Active celecoxib (CeleBREX) 100 mg capsule 100 mg. 12/21/19 18 Active cycloSPORINE 0.05 % drops 1 Drop 2 times daily. Active DULoxetine (CYMBALTA) [address] capsule Take 1 capsule (30 mg total) by mouth 1 (one) time each day. 09/22/19 23 Active dupilumab (Dupixent Syringe) 300 mg/2 mL syringe 10/21/19 23 Active esomeprazole (NexIUM) [address] capsule 40 mg. 12/21/19 18 Active eszopiclone (LUNESTA) 2 mg tablet Take 2 mg by mouth at bedtime as needed. Active fluticasone propionate (FLONASE) 50 mcg/actuation nasal spray 2 Sprays by Each Nare route daily. 07/17/19 15 Active halobetasol (ULTRAVATE) 0.05 % cream 01/12/20 19 Active irbesartan (AVAPRO) 300 mg tablet Take 1 tablet (300 mg total) by mouth 1 (one) time each day. 07/23/19 23 Active lidocaine (LIDODERM) 5 % patch Place 3 Patches onto the skin every 12 hours. Apply for no more than 12 hours in any 24 hour period.APPLY 1 TO 3 PATCHES ONTO SKIN, 12 HOURS ON , 12 HOURS OFF 06/17/19 16 Active methocarbamoL (ROBAXIN) 500 mg tablet 03/04/20 19 Active methylphenidat e 54 mg 24 hr tablet Take 1 Tab by mouth every morning. 05/07/20 19 Active prochlorperazi ne (COMPAZINE) 10 mg tablet Take 1 Tab by mouth every 6 hours as needed (as needed for nausea). 02/20/20 15 Active promethazine (PHENERGAN) 12.5 mg tablet 12.5 mg. 12/21/19 18 Active propranoloL (INDERAL) 40 mg tablet Take 1 tablet (40 mg total) by mouth 1 (one) time each day. 08/23/19 23 Active rosuvastatin (CRESTOR) 20 mg tablet 02/20/20 19 Active selenium sulfide 2.25 % shampoo 01/07/20 19 Active sildenafiL (VIAGRA) 100 mg tablet 01/21/20 19 Active tamsulosin (FLOMAX) 0.4 mg 24 hr capsule 1 capsule at bedtime. 01/31/20 13 Active terbinafine (LamISIL) 250 mg tablet Take 1 tablet (250 mg total) by mouth 1 (one) time each day. 09/06/19 23 Active testosterone 50 mg/5 gram (1 %) gel APPLY 1 PACKETS TO SKIN DAILY 10/12/19 23 Active testosterone cypionate (DEPO-TESTOTER ONE) 200 mg/mL injection Inject 1 mL into the muscle every 14 days. 1INJECT 1 ML INTO THE MUSCLE EVERY 14 DAYS 07/24/19 16 Active Active Problems Problem Noted Date Diagnosed Date Chronic hyponatremia 10/21/2022 Overview (05/29/2024): Last Assessment & Plan: We spent quite some time discussing his history of hyponatremia as this was the source of his episode of syncope 2 years ago and the occasions when he has felt lightheaded or dizzy. He believes that his lowest sodium levels were while on Tegretol but he has been switched to Cymbalta and hopefully will not have the same side effect. He does have other side effects though of urinary retention, constipation and diminished sexual function. This will continue to be managed by Dr. Mi. Colloid cyst of third ventricle 10/21/2022 Overview (05/29/2024): Last Assessment & Plan: I described this in detail to Mr. Gama, specifically that the colloid cyst is in the typical location at the top of the third ventricle where the 2 sides connect. It can cause sudden syncope or symptoms associated with hydrocephalus such as dizziness, lightheadedness and headache. He does not have hydrocephalus and does not appear obstructed. In addition, I believe this is stable compared to the MRI of the brain from April 2021. I am comfortable following this with a repeat head CT in 2 years. The patient is welcome to contact us should he have any new symptoms or concerns in the interim. 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 Gama reports these episodes of pain in his sides that he called back pain over the past 3 years however, on exam, this is really at his iliac crests. Unfortunately, it did not improve after his hip surgery as he hoped but, he has seen some improvement in the last month while on Cymbalta. There is no history of trauma so I do not see a need for any imaging of his pelvis and the iliac crest would have been included on any previous hip images. There is really nothing else to do for this. Bipolar affective disorder, current episode depr essed 11/27/2018 Bipolar 1 disorder 11/23/2017 Attention deficit hyperactiv ity disorder (ADHD), predominantly inattentive type 09/01/2017 Low serum testosterone 07/24/2015 Obstructive sleep apnea 08/15/2014 Overview (05/29/2024): 10/02/2018 to 10/31/2018. BiPAP@ 18/12. 93% compliant with using the machine for >4 hours/day. Average use is 9.5 hours a night with AHI 1.6. 04/24/2019 to 05/23/2019. BiPAP@ 18/12 with 2 liter oxygen bleed in. 93% compliant with using the machine for >4 hours/day. Average use is 8 hours a night with AHI 3.4. Chronic asthmatic bronchitis 05/23/2013 Sleep walking 05/17/2012 Spinal stenosis, lumbar 04/20/2010 Degenerative arthritis of lumbar spine 0 Post laminectomy syndrome 03/02/2010 Back pain 01/04/2010 Cervicalgia 01/04/2010 Bipolar I disorder, recurren t manic episode, in full remission 06/10/2009 Allergic rhinitis 06/27/2005 Chronic hepatitis C 06/27/2005 Depressive disorder 06/27/2005 Eosinophilia 06/27/2005 Esophageal reflux 06/27/2005 Essential hypertension, benign 06/27/2005 Attention deficit disorder Overview (06/12/2024): DX:Attention deficit disorder Sleep apnea Overview (06/12/2024): DX:Sleep apnea Colon polyp Encounters Date Type Department Care Team Description 04/24/2024 Telephone Gastroenterology - [address] [place] [address] Rodney Garcia [place] CANCELLATION from Last 3 Months Immunizations Name Administration Dates Next Due H1N1 Inj Preservative Free 05/27/2009 Influenza trivalent, with pr eservative (Fluzone; Afluria) 6mo and older 03/05/2015,03/21/2014,02/13/2013,02/07,01/25/2011,01/20/2010,02/10/2009 ,03/21/2008,03/01/2007,04/12/2006,12/0 10/2004 PPD Test 03/12/2013,10/22/2003 Pneumococcal polysaccharide 23 valent (Pneumovax 23) 2yo and older 01/14/2014,10/22/2003 Td, Unspecified 10/22/2003 Tdap Tetanus diptheria acell ular pertussis (Boostrix; Adacel) 7yo and older 02/24/2009 Surgical History Surgery Date Site/Laterality Comments APPENDECTOMY PROCEDURE: HISTORICAL APPENDECTOMY KNEE ARTHROSCOPY W/ DEBRIDEMENT PROCEDURE: OK ARTHRS KNEE DEBRIDEMENT/SHAVING ARTCLR CRTLG SHOULDER SURGERY PROCEDURE: OK UNLISTED PROCEDURE SHOULDER OTHER SURGICAL HISTORY PROCEDURE: OK UNLISTED PROCEDURE SPINE; COMMENT: Neck and back x3 neck, x4 back HERNIA REPAIR PROCEDURE: HISTORICAL HERNIA REPAIR/UMB EYE SURGERY PROCEDURE: OK TRABECULOPLASTY BY LASER SURGERY; COMMENT: narrow angle glaucoma COLONOSCOPY 2006, 2011,04/2020 PROCEDURE: OK COLONOSCOPY STOMA DX INCLUDING COLLJ SPEC SPX; COMMENT: Zerogian OTHER SURGICAL HISTORY 2013 PROCEDURE: UPPER GASTROINTESTINAL ENDOSCOPY IN TOTAL KNEE ARTHROPLASTY 07/08/13 PROCEDURE: OK ARTHRP KNE CONDYLE&PLATU MEDIAL&LAT COMPARTMENTS; COMMENT: L knee Dr Gates GASTROSCOPY 02/13/2024 - 03/14/2024 Medical History Medical History Date Comments Allergic rhinitis, cause unspecified DX:Allergic rhinitis, cause unspecified Enthesopathy of wrist and carpus DX:Enthesopathy of wrist and carpus Depressive disorder, not els ewhere classified DX:Depressive disorder, not elsewhere classified Esophageal reflux DX:Esophageal reflux Essential hypertension, benign D X:Essential hypertension, benign Eosinophilia DX:Eosinophilia Contact dermatitis and other eczema, due to unspecified cause DX:Contact dermatitis and ot her eczema, due to unspecified cause Androgens and anabolic conge ners causing adverse effect in therapeutic use 01/04/2007 DX:Androgens and anabolic co ngeners causing adverse effect in therapeutic use Back pain 01/04/2010 DX:Back pain Cervicalgia 01/04/2010 DX:Cervicalgia Low serum testosterone 07/24/2015 DX:Low se rum testosterone Chronic hepatitis C (CMS/HCC) 06/27/2005 DX :Chronic hepatitis C (HCC) Bronchitis DX:Bronchitis Attention deficit disorder DX:At tention deficit disorder Sleep apnea DX:Sleep apnea Colon polyp Family History Relation Name Status Comments Brother 1 Alive aovr - htn - hi gh choles - sierra Brother 2 Alive htn - cholester ol - knee - girish Brother 3 Alive prostate cancer , hearing problem - verna Brother 4 Alive Prostrate cance r - sherif Daughter Alive 1 healthy Father (Age 71) [place] - prost ate cancer - diabetes - cabg Maternal Grandfather mi x's 7 Maternal Grandmother lung ca ncer Mother Alive ibs - back pain Paternal Grandfather alcohol ic Paternal Grandmother (Age 90s ) old age Son Alive 2 healthy Social History Tobacco Use Types Packs/Day Years Used Date Smoking Tobacco: Former Cigarettes Q uit: 12/13/2008 Smokeless Tobacco: Never Alcohol Use Standard Drinks/Week Comments Yes 0 (1 standard drink = 0.6 oz pur e alcohol) Sex and Gender Information Value Date Recorded Sex Assigned at Male 04/01/2024 9:10 AM EST Legal Sex Male 11:58 PM EST Gender Identity Male 04/01/2024 9:10 AM EST Sexual Orientation Straight 04/01/2024 9: 10 AM EST Obstetrics History Last Filed Vital Signs Vital Sign Reading Time Taken Comments Blood Pressure - - Pulse - - Temperature - - Respiratory Rate - - Oxygen Saturation - - Inhaled Oxygen Concentration - - Weight 107 kg (235 lb) 10/21/2022 10:04 AM EDT Height 177.8 cm (5' 10 ) 10/21/2022 10:04 AM EDT Body Mass Index 33.72 10/21/2022 10:04 AM EDT Plan of Treatment Upcoming Encounters Date Type Department Care Team (Late st Contact Info) Description 07/24/2024 8:15 AM EDT Appointment [facility] Nuclear Medicine [address] [place] [id number] Health Maintenance Due Date Last Done Comments Zoster Vaccines (1 of 2) 2007 Pneumococcal Vaccine: 50+ Years (2 of 2 - PCV) 01/14/2015 01/14/2014, 10/22/2003 Hepatitis B Vaccines (1 of 3 - Risk 3-dose series) 2017 RSV Immunization Patients 60+ Years Old (1 - Risk 60-74 years 1-dose series) 2017 DTaP,Tdap,and Td Vaccines (3 - Td or Tdap) 02/24/2019 02/24/2009, 10/22/2003 Cholesterol Screening (Lipid Panel) 04/17/2022 01/14/2014 Colorectal Cancer Screening: Colonoscopy 04/17/2022 Depression Screening 04/17/2022 Falls Risk Assessment 04/17/2022 Hepatitis C Screening 04/17/2022 Medicare Annual Wellness Visit 04/17/2022 Social Influencers of Health Screening 04/17/2022 Hypertension/CHF/CAD Annual BMP Blood Test 04/24/2022 05/13/2014 COVID-19 Vaccine ( season) 2024 Influenza Vaccine (#1) 2024 5, 03/21/2014, 02/13/2013, Additional history exists Abdominal Aortic Aneurysm (AAA) Screen Completed 03/24/2010 HIB Vaccines Aged Out No longer eligi ble based on patient's age to complete this topic HPV Vaccines Aged Out No longer eligi ble based on patient's age to complete this topic Hepatitis A Vaccines Aged Out No long er eligible based on patient's age to complete this topic IPV Vaccines Aged Out No longer eligi ble based on patient's age to complete this topic MMR Vaccines Aged Out No longer eligi ble based on patient's age to complete this topic Meningococcal ACWY Vaccine Aged Out N o longer eligible based on patient's age to complete this topic Meningococcal B Vacine Aged Out No lo nger eligible based on patient's age to complete this topic RSV Immunization Patients Under 20 months Aged Out No longer eligible based on patient's age to complete this topic Varicella Vaccines Aged Out No longer eligible based on patient's age to complete this topic Procedures Procedure Name Priority Date/Time Associated Diagnosis Comments ANNUAL BMP BLOOD TEST Routine 05/13/2014 LIPID PANEL Routine 01/14/2014 ABDOMINAL AORTIC ANEURYSM SCRREN Routine 03/24/2010 from Last 3 Months or Most Recently Relevant to Health Maintenance Results * Annual BMP Blood Test (05/13/2014) Pathologist [facility] Annual BMP Blood Test abstracted [facility] Provider HEALTH MAINTENANCE Final Result * (ABNORMAL) Lipid panel (01/14/2014) [facility] LDL/HDL Ratio 5(A) 0 - 4 Triglycerides 271(A) 0 - 150 mg/dL Cholesterol 280(A) 0 - 200 mg/dL HDL 55 >=40 mg/dL LDL Cholesterol 171(A) 0 - 100 mg/dL Blood Venous blood specimen / Unknown [facility] Provider LAB BLOOD ORDERABLES Kristen l Result * Abdominal Aortic Aneurysm Screen (03/24/2010) [facility] Abdominal Aortic Aneurysm (AAA) Screening abstracted Anatomical Region Laterality Modality Other [facility] Provider HEALTH MAINTENANCE Final Result from Last 3 Months or Most Recently Relevant to Health Maintenance Insurance MEDICARE [facility] Care Teams Licensed Investment Sales Assistant Relationship Specialty Start Date End Date Deandre Mi MD [address] [place] [id number] PCP - General Internal Medicine 03/28/24
--- OUTSIDE RECORDS SUMMARY | 2024-07-03 14:48 | XMS_ITS | Continuity of Care Document ---
Author Organization [facility], [facility] - [address] floor Address [address] [place] [address] Care Team Providers Care Electric Power Line Examiner Name Role Phone TERRANCE HENDERSON Primary Care Provider [phone] Assessment No assessment recorded. Plan of Treatment Reminders Order Date Submit Date Provider Last Modified By Organization Details Last Modified Time Details Appointments None record ed. Lab None record ed. Referral None record ed. Procedures None record ed. Surgeries None record ed. Imaging None record ed. Medication Orders None record ed. Patient TargetsNo targets recorded. Patient InstructionsNo instructions recorded. Reason for Referral None Reported. Problems Name Problem SNOMED Code Status Onset Date Resolution Date Notes Provider Name and Address Organization Details Recorded Time No complaints [id number] Active Status : 'I'; Not Available [facility] 4 09:14:14 Problem Notes None recorded. Procedures Surgical History Date Name Laterality Status Provider Name and Address Organization Details Recorded Time 5 Sports Shoulder 4&1 w/US completed Richard Donovan PA-C [address] [facility], [place], [address], [facility] 06/18/2024 09:16:39 4 Sports Shoulder completed Jenifer Bear MD [address], [place], [address], [facility] 02/08/2024 14:45:05 4 total shoulder replacement completed HU SZYMANSKI [facility] 08/10/2023 16:06:58 Imaging Results None recorded. Procedure Notes None recorded. Medical Equipment None Reported. Allergies Allergen ID Allergen Name Allergen Category Reaction Reaction Severity Criticality Documentation Date Start Date Code Code System Note Provider Name and Address Organization Details Recorded Time 59214 erythromy lory medicatio n Not available Not available Not available 07/17/20232011 4053 RxNorm Not Available [facility] 4 14:15:30 Medications Name Sig Start Date Stop [...] Available Not Available Not Available Connor Kaminski [facility] spacer DIRECTED 09/13 completed Not Available [...] Updated DateTime 06/18/2024 175.26 cm 32.9 kg/m2 156533.1 g Carolyn Guerrero [place] - [facility] 06/18/2024 08:58:26 Social History None recorded. Functional Status None recorded. Mental Status None recorded. Family History Nothing Reported. Medical History Condition Response Anxiety/Depression Y Arthritis Y Sleep Apnea Y Hepatitis Y Headaches Y Hypertension Y Past Encounters Encounter ID Performer Location Encounter Start Date Encounter Closed Date Diagnosis/Indication Diagnosis SNOMED-CT Code Diagnosis ICD10 Code Diagnosis Note [id number] [facility] [address] [place] [address] 06/18/2024 08:41:39 06/26/2024 08:12:51 Osteoarthritis of right glenohumeral joint [id number] 950977 M19.011 Health Concerns Section Related Observation LastModified by Organization Detai ls LastModified Time None Recorded Concern Status LastModified by Organization Details LastModified Time None Recorded Payers Encounter Date Sequence Insurance Name Policy Number Policy Kathleen Covered Member ID Kathleen Member ID Guarantor Name 06/18/2024 2 [place]ARE [place] [employer] Dalton Porras [id number] Dalton Rizvi Vern 06/18/2024 1 [facility] [id number] Preeti Porras [id number] Dalton Porras Notes Date Note Type Note Provider Name and Address Organization Details Recorded Time 06/18/2024 text/html I am seeing the patient today under the supervision of Dr. Pate who was available but who did not see the patient. REASON FOR VISIT Patient comes to the office with known glenohumeral joint arthritis of the {{left Right* Bila teral}} shoulder. The patient has done well with [...] of motion of the shoulder is {{full restricted* }} with moderate pain through mid range manipulations. [...] up as needed. Richard Donovan PA-C [address], [place], [address], [facility] 06/18/2024 09:17:12
--- OUTSIDE RECORDS SUMMARY | 2024-07-03 14:48 | XMS_ITS | Encounter Summary ---
Author Organization [facility] Address [address] [place] [address] Phone Care Team Providers Care Cranberry Bog Supervisor Name Role Phone Deandre Mi MD Primary Care Provider [phone] Encounter Details Date Type Department Care Team (Late st Contact Info) Description 09/12/2022 Telephone [facility] [address] [place] [id number] Pam Parry Social History Tobacco Use Types Packs/Day Years Used Date Smoking Tobacco: Former Smokeless Tobacco: Never Alcohol Use Standard Drinks/Week Comments Yes 0 (1 standard drink = 0.6 oz pure alcohol) Alcoholic Drinks/day: Occasional social drink Sex and Gender Information Value Date Recorded Sex Assigned at Not on file Legal Sex Male 4:51 PM EST Gender Identity Not on file Sexual Orientation Not on file documented as of this encounter Miscellaneous Notes * Telephone Encounter - Pam Parry - 09/12/2022 3:45 PM EDT Pt says that his script for Urea 15 G pack, he would like refilled at [facility] in [place]. PT previously attempted to have this medication filled at [facility] but he says they did not fill it and were waiting for an alternative from the office to fill but no one responded back. PT says he checked [facility] and they said they would be able to fill it. Please advise. documented in this encounter Plan of Treatment Not on file documented as of this encounter Visit Diagnoses Not on filedocumented in this encounter Care Teams Cranberry Bog Supervisor Relationship Specialty Start Date End Date Deandre Mi MD [address] [place] [address] PCP - General 05/25/20 documented as of this encounter
--- OUTSIDE RECORDS SUMMARY | 2024-07-03 14:48 | XMS_ITS | Continuity of Care Document ---
Author Organization [facility] Address [address] [place] [address] Phone [phone] Care Team Providers Care Inspector Screen Printing Name Role Phone Daendre Mi M.D. Care Team Information Recei sudheer [phone] Problems Active Problems Provider Date Hypogonadism Segun Pozo M.D. Onset: 0 12/20/2022 Social History Type Date Description Comments Sex Unknown Tobacco Use Start: Unknown End: Unknown Quit 2009 ETOH Use Drinks 2 Alcohol ic Beverages Per Day Tobacco Use Start: Unknown End: Unknown Patient is a former smoker Smoking Status Reviewed: 12/20/22 Patient is a former smoker Allergies and adverse reactions Description No Known Drug Allergies Medications Active Medications SIG Qnty Indications Ordering Provider Date Srjqgw8qr/0.5ML Solution Auto-Inject inject weekly for one month 2ml Segun Pozo M.D. 12/20/2022 Aejbflmiyjwy72la/5GM (1%) Gel Apply 1 Packet To Skin Daily 150units E29.1 Segun Pozo M.D. 12/14/2021 Duloxetine [id number] Andrés Razo Take 1 Capsule By Mouth Every Day Deandre Mi M.D. Vital Signs Date Vital Result Comment 03/06/2024 1:43pm BP Systolic 120 mmHg BP Diastolic 80 mmHg Heart Rate 72 /min Height 70 inches 5'10 Weight 204.25 lb BMI (Body Mass Index) 29.3 kg/m2 Results Test Acquired Date Facility Test Result H/L Range Note Comp. Metabolic Panel (14) 03/18/2024 [facility] Glucose 94 mg/dL 70-99 BUN 23 mg/dL 8-27 Creatinine 0.96 mg/dL 0.76-1.27 eGFR 87 mL/min/1.7 3 >59 BUN/Creatinine Ratio 24 10-24 Sodium 136 mmol/L 134-144 Potassium 5.7 mmol/L High 3.5-5.2 Chloride 95 mmol/L Low 96-106 Carbon Dioxide, Total 24 mmol/L 20-29 Calcium 10.1 mg/dL 8.6-10.2 Protein, Total 7.0 g/dL 6.0-8.5 Albumin 4.3 g/dL 3.9-4.9 Globulin, Total 2.7 g/dL 1.5-4.5 Bilirubin, Total 0.2 mg/dL 0.0-1 .2 Alkaline Phosphatase 119 IU/L 44-121 Ast (Sgot) 25 IU/L 0-40 Alt (SGPT) 22 IU/L 0-44 CBC With Differential/Pl atelet 03/18/2024 [facility] WBC 13.6 x10E3/uL High 3.4-10.8 RBC 4.40 x10E6/uL 4.14-5.80 Hemoglobin 13.1 g/dL 13.0-17.7 Hematocrit 40.1 % 37.5-51.0 MCV 91 fL 79-97 MCH 29.8 pg 26.6-33.0 MCHC 32.7 g/dL 31.5-35.7 RDW 12.6 % 11.6-15.4 Platelets 426 x10E3/uL 150-450 Neutrophils 67 % Not Estab. Lymphs 19 % Not Estab. Monocytes 9 % Not Estab. Eos 2 % Not Estab. Basos 1 % Not Estab. Immature Cells TNP Neutrophils (Absolute) 9.2 x10E3/uL High 1.4-7.0 Lymphs (Absolute) 2.6 x10E3/uL 0.7-3.1 Monocytes(Absol u te) 1.2 x10E3/uL High 0.1-0.9 Eos (Absolute) 0.3 x10E3/uL 0.0-0.4 Baso (Absolute) 0.1 x10E3/uL 0.0-0.2 Immature Granulocytes 2 % Not Estab. Immature Grans (Abs) 0.2 x10E3/uL High 0.0-0.1 1 NRBC TNP Hematology Comments: TNP Laboratory test finding 03/18/2024 [facility] Prostate-Specifi c Ag 0.7 ng/mL 0.0-4.0 2 Testosterone 124 ng/dL Low 264-916 3 Laboratory test finding 01/24/2023 [facility] Testosterone 273 ng/dL Low (280-800) 1 (An elevated percent age of Immature Granulocytes has not been found to be clinically significant as a sole clinical predictor of disease. Does NOT include bands or blast cells. associated physiological leukocytosis may also show increased immature granulocytes without clinical significance.) 2 Shahid ECLIA methodol ogy. According to the [place] [employer], Serum PSA should decrease and remain at undetectable levels after radical prostatectomy. The AUA defines biochemical recurrence as an initial PSA value 0.2 ng/mL or greater followed by a subsequent confirmatory PSA value 0.2 ng/mL or greater. Values obtained with different assay methods or kits cannot be used interchangeably. Results cannot be interpreted as absolute evidence of the presence or absence of malignant disease. 3 Adult male reference interval is based on a population of healthy nonobese males (BMI <30) between 19 and 39 years old. Buzz et.al. JCEM 2017,102;9589-5958. PMID: [id number]. Procedures Date Code Description Status 03/05/2024 NSHOWOFF No Show Office Visit Complet ed 12/20/2023 NSHOWOFF No Show Office Visit Complet ed Medical Devices Description No Information Available Encounters Type Date Location Provider Dx Diagnosis Office Visit 03/06/2024 1:15p Main Office Segun Pozo M.D. E29.1 Testicular hypofunction Assessments Date Code Description Provider 03/06/2024 E29.1 Testicular hypofunction Segun Pozo M.D. Plan of Treatment Future Appointment(s):* 03/11/2025 1:00 pm - Segun Pozo M.D. at Main Office 03/06/2024 - Segun Pozo M.D.* E29.1 Testicular hypofunction Functional Status Description No Information Available Mental Status Description No Information Available Referrals Refer to Dr Reason for Referral Status Appt Segun Bejarano M.D. Created [address] [place] [address] [address] [place] [address] [phone]
--- OUTSIDE RECORDS SUMMARY | 2024-07-03 14:48 | XMS_ITS | Clinical Summary ---
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 Name Role Phone Deandre Mi MD Primary Care Provider Allergies No known active allergies Medications amLODIPine (NORVASC) 10 MG tablet Take 10 mg by mouth 1 (one) time each day Active carBAMazepine ER, Antipsych, (Equetro) 300 MG capsule sustained-relea se 12 hr Take 1 capsule by mouth 2 (two) times a day Active esomeprazole (NexIUM) [address] capsule Take 1 capsule by mouth 1 (one) time each day Active eszopiclone (LUNESTA) 2 MG tablet Take 2 mg by mouth daily Active FLUoxetine (PROzac) 20 MG capsule Take 1 capsule by mouth 1 (one) time each day Active irbesartan (AVAPRO) 300 MG tablet Take 1 tablet by mouth 1 (one) time each day Active methylphenidate (CONCERTA) 54 MG CR tablet Take 1 tablet by mouth 1 (one) time each day Active propranolol (INDERAL) 40 MG tablet Take 1 tablet by mouth 1 (one) time each day Active tamsulosin (FLOMAX) 0.4 MG 24 hr capsule Take 1 capsule by mouth 1 (one) time each day Active Meloxicam 30 MG/ML injection Infuse into a venous catheter Active DULoxetine (CYMBALTA) [address] capsule Take 30 mg by mouth 1 (one) time each day Do not crush or chew. Active Urea 40 % suspension Apply 7 oz topically 1 (one) time each day 100 g 11 3 Active Active Problems Problem Noted Date Diagnosed Date Acute nontraumatic kidney injury 11/05/2020 Chronic kidney disease stage 3 11/05/2020 Chronic kidney disease stage 2 11/05/2020 Hypertensive disorder 11/05/2020 Hypertensive renal disease 11/05/2020 Hyposmolality and/or hyponatremia 11/05/2020 Family History Medical History Relation Comments Cancer Father Diabetes Father Heart disease Father Hypertension Father Kidney disease Father Relation Status Comments Father Mother Social History Tobacco Use Types Packs/Day Years Used Date Smoking Tobacco: Former Smokeless Tobacco: Never Tobacco Cessation:Counseling Given: No Alcohol Use Standard Drinks/Week Comments Yes 0 (1 standard drink = 0.6 oz pure alcohol) Alcoholic Drinks/day: Occasional social drink Sex and Gender Information Value Date Recorded Sex Assigned at Not on file Legal Sex Male 4:51 PM EST Gender Identity Not on file Sexual Orientation Not on file Last Filed Vital Signs Vital Sign Reading Time Taken Comments Blood Pressure 128/74 09/05/2022 4:24 PM EDT Pulse 102 09/05/2022 4:24 PM EDT Temperature - - Respiratory Rate - - Oxygen Saturation - - Inhaled Oxygen Concentration - - Weight 110 kg (242 lb) 09/05/2022 4:24 PM EDT Height 177.8 cm (5' 10 ) 04/24/2020 12:00 PM EST Body Mass Index 34.72 04/24/2020 12:00 PM EST Plan of Treatment Health Maintenance Due Date Last Done Comments Pneumococcal Vaccine: 65+ Ye ars (1 of 2 - PCV) 1961 Colorectal Cancer Screening: Annual FOBT 2006 Colorectal Cancer Screening: Colonoscopy 2006 Colorectal Cancer Screening: Sigmoidoscopy 2006 Influenza Vaccine (#1) 2024 Hepatitis B Vaccine Aged Out No longe r eligible based on patient's age to complete this topic Insurance [facility] Care Teams Ropewalk Rope 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
== END 2024-07-03 15:11 | disposition home or self-care (01) ==
PROVIDERS: PCP Internal Medicine; Visit Provider Internal Medicine Pulmonary Disease
DX: J44.9 Chronic obstructive pulmonary disease, unspecified (principal); Z87.891 Personal history of nicotine dependence; G47.33 Obstructive sleep apnea (adult) (pediatric); Z99.89 Dependence on other enabling machines and devices; Z91.09 Other allergy status, other than to drugs and biological substances
CPT/HCPCS: 99214

== ENCOUNTER → 2024-07-03 14:44 | Outpatient (BNVA) | payer BC, MEDICARE, SELFPAY | PROVIDERS: PCP Internal Medicine; Visit Provider Internal Medicine Pulmonary Disease ==

== ENCOUNTER 2025-02-20 16:14 | Outpatient (REF) | payer BC, MEDICARE, SELFPAY | END 2025-02-20 16:15 | disposition home or self-care (01) | LOC: HO.CT 16:14 | PROVIDERS: PCP Internal Medicine; Visit Provider Physician Assistant Medical | DX: Z13.89 Encounter for screening for other disorder (principal) ==